=== PATIENT | male | born 1980 | race Caucasian/White ===

== ENCOUNTER → 2016-12-15 | Outpatient (CLI) | payer OTHER ==
[2016-12-15 08:24] LABS: BASO # 0.1 x10^3/uL (0.0-0.2); BASO % 1 % (0-3); EOS % 2 % (0-3); HEMATOCRIT 45.2 % (39.0-53.0); HEMOGLOBIN 15.2 g/dL (13.0-17.5); LYMPH # 2.4 x10^3/uL (1.0-4.8); LYMPH % 28 % (24-48); MEAN CORPUSCULAR HEMOGLOBIN 29 pg (25-35); MEAN CORPUSCULAR HGB CONC 34 g/dL (31-37); MEAN CORPUSCULAR VOLUME 88 fL (79-100); MONO % 7 % (0-9); NEUT % 63 % (31-73); PLATELET COUNT 256 x10^3/uL (140-400); RED BLOOD COUNT 5.16 x10^6/uL (4.30-5.70); RED CELL DISTRIBUTION WIDTH 13.7 % (11.5-14.5); WHITE BLOOD COUNT 8.5 x10^3/uL (4.0-11.0)
[2016-12-15 08:35] LABS: FREE T4 0.83 ng/dL (0.76-1.46)
[2016-12-15 08:51] LABS: ALBUMIN 3.6 g/dL (3.4-5.0); ALBUMIN/GLOBULIN RATIO 0.9 (1.0-1.7); CALCIUM 8.7 mg/dL (8.5-10.1); GFR 84.1; POTASSIUM 4.4 mmol/L (3.5-5.1); TOTAL BILIRUBIN 0.5 mg/dL (0.2-1.0); TOTAL PROTEIN 7.8 g/dL (6.4-8.2)
== END | disposition home or self-care (01) ==
LOC: LAB 07:43
PROVIDERS: ATTEND Physician Assistant
DX: Z13.220 Encounter for screening for lipoid disorders (principal); R53.83 Other fatigue
CPT/HCPCS: 36415; 80053; 80061; 84439; 84443; 85027

== ENCOUNTER → 2017-01-04 | Outpatient (CLI) | payer OTHER ==
[~2017-01-04] MED LIST: ZOLPIDEM 5 MG TABLET. PO ONE
--- NOTE | 2017-01-05 10:26 | SLEEP ---
DATE OF STUDY: 01/04/2017 REFERRED BY: JOSE Bee The patient is 36 years old who weighs 250 pounds with a BMI of 43. The patient's [place] score was 8. A split night study was performed at [facility]. During the night study, the patient spent 395 minutes in bed and slept for 261 minutes with a low sleep efficiency of 66%. Sleep latency was 18 minutes with a REM latency of 304 minutes. Overall, sleep architecture showed normal stage I and stage II sleep, increased slow wave and reduced REM sleep. During the initial diagnostic portion of the study, the patient slept for 138 minutes. During this time, there were 4 obstructive apneas, 5 mixed and 1 central apneas. There were 77 hypopneas. The patient's apnea-hypopnea index was 38 per hour. Supine index 51 per hour. REM sleep was not seen during the diagnostic portion. EKG monitoring revealed mean heart rate of 75 beats per minute. No sustained arrhythmias were observed. Mean oxygen saturation remained around 95% with the lowest of 85%, 9% of time oxygen saturation remained between 80% and 89%. PLMS were not seen. The patient met the criteria for CPAP initiation. He was started 5 cm of water and titrated up to 7 cm of water. At the final pressure, the patient slept for 82 minutes. Supine as well as REM sleep was observed. AHI was reduced to 0 per hour and oxygen saturation remained above 91%. The patient used a small-sized nasal mask. IMPRESSION: 1. Severe sleep apnea-hypopnea syndrome with an apnea-hypopnea index of 38 per hour. 2. Mild nocturnal hypoxia secondary to obstructive sleep apnea, but resolved with CPAP. 3. No clinically significant periodic limb movements of sleep. RECOMMENDATIONS: 1. CPAP at 7 cm water completely eliminated the patient's sleep apnea and it should be used on a nightly basis. 2. Follow up in 4-6 weeks to assess compliance with CPAP and to document clinical improvement. 3. Weight loss is strongly advised. 4. Avoid [employer] depressants. 5. Caution regarding driving until symptoms of sleep apnea resolve with the use of CPAP. TATO WALL MD DR: JASIEL/debra JOB#: [id number] / [id number]
== END | disposition home or self-care (01) ==
LOC: SLPLAB 20:07
PROVIDERS: ATTEND Physician Assistant
DX: R06.81 Apnea, not elsewhere classified (principal)
CPT/HCPCS: 95810

== ENCOUNTER → 2017-01-25 | Outpatient (CLI) | payer OTHER ==
--- NOTE | 2017-01-25 14:39 | CARD ---
APPROVED REPORT Reason : Patient complained of pain PROCEDURE The patient underwent an Exercise Stress Test using the Nestor Protocol. Blood pressure, heart rate, a nd EKG were monitored. An Echocardiogram was performed by ruling technician in four stages in quad fashion. At peak stress four se lected images were obtained and placed side by side with resting images for comparison. STRESS ECHO FINDINGS The resting Echocardiogram showed normal left ventricular contractility with an estimated Ejection Fr action of about 60 %. Normal augmentation of myocardial wall segments using a 16 segment model. Test Type: Pharmacological Stress Nurse/Tech: Julee Taylor R.N. Test Indications: C/P Cardiac History and Allergies: No known cardiac Medications: see ehr Medical History: see ehr Resting ECG: SR w inverted T waves in leads AVR,AVL,V1,V2 Resting Heart Rate: 83 bpm Resting Blood Pressure: 141/78mmHg Pretest Chest Pain: No chest pain Nurse/Tech Notes S1S2, lungs CTA Stress Symptoms Dyspnea POST EXERCISE Reason for Termination: Reached target heart rate Target HR: Yes Max HR: 174 bpm 95% of Maximum Predicted HR: 183 bpm Exercise duration: 10.01 min:sec, 4 Stage Exercise capacity: 12.8METs Max Blood Pressure: 190/98mmHg Blood Pressure response to exercise: Normal blood pressure response during stress. Heart Rate response to exercise: wnl Chest Pain: No. Arrhythmia: No. ST Change: Yes. Non-specific ST/T wave changes. No clear signs of ischemia RESTING ECG Rhythm: Sinus STRESS ECG Rhythm: Sinus Tachycardia Stress EKG shows no significant changes. <Conclusion> The left ventricle is normal in size and wall thickness in both the rest and stress images.
== END | disposition home or self-care (01) ==
LOC: ECHO 12:46
PROVIDERS: ATTEND Internal Medicine Cardiovascular Disease
DX: R06.00 Dyspnea, unspecified (principal)
CPT/HCPCS: 93017; 93350

== ENCOUNTER 2017-10-04 11:02 | Observation (INO) | payer OTHER ==
[~2017-10-04 11:02] MED LIST changes: +HYDROmorphone 2 MG/ML VIAL IV; +LIDOCAINE 1% PF 2 ML VIAL. ID; +MORPHINE SULFATE 2 MG/ML DISP.SYRIN. IV; +PROCHLORPERAZINE 10 MG/2 ML VIAL. IV; -ZOLPIDEM 5 MG TABLET. PO ONE; +fentaNYL PF VIAL 100 MCG/2 ML VIAL IV
[2017-10-04] MEDS: IV RINGERS,LACTATED 1000ML 1,000 ML IV ×6 (11:59→20:05)
[2017-10-04] MEDS ORDERED: DEXAMETHASONE SOD PHOS 20 MG/5 ML VIAL. ×2 (12:42)
[2017-10-04] MEDS ORDERED: ROCURONIUM 50 MG/5 ML VIAL. ×2 (12:42)
[2017-10-04] MEDS ORDERED: fentaNYL PF VIAL 100 MCG/2 ML VIAL ×2 (12:42)
[2017-10-04] MEDS ORDERED: PROPOFOL 20 ML IV ×2 (12:42)
[2017-10-04] MEDS ORDERED: MIDAZOLAM HCL/PF 2 MG/2 ML VIAL. ×2 (12:42)
[2017-10-04] MEDS ORDERED: ONDANSETRON PF 4 MG/2 ML VIAL. ×2 (12:42)
[2017-10-04] MEDS ORDERED: LIDOCAINE 2% PF Vial for OR 5 ML VIAL. ×2 (12:42)
[2017-10-04] MEDS: OXYMETAZOLINE 0.05% NASAL SPRAY 30ML BOTTLE. NS ×2 (13:00)
[2017-10-04] MEDS ORDERED: GLYCOPYRROLATE 1 MG/5 ML VIAL. ×2 (13:01)
[2017-10-04] MEDS: BUPIVACAINE-EPI 0.25%-1:200000 50 ML VIAL. ×2 (13:26)
[2017-10-04] MEDS: LIDOCAINE 1%/EPI 1:100,000 20 ML VIAL. ×2 (13:26)
[2017-10-04] MEDS ORDERED: NEOSTIGMINE METHYLSULFATE 5 MG/5 ML SYRINGE. ×2 (13:55)
[2017-10-04] MEDS ORDERED: ONDANSETRON PF 4 MG/2 ML VIAL. IV ×2 (14:15)
[2017-10-04] MEDS ORDERED: CALCIUM CARBONATE 500 MG TAB.CHEW PO ×2 (14:15)
[2017-10-04] MEDS ORDERED: MAG HYDROX/ALUMINUM HYD/SIMETH 30 ML ORAL.SUSP PO ×2 (14:15)
[2017-10-04] MEDS ORDERED: NALOXONE 0.4 MG/ML VIAL. IV ×2 (14:15)
[2017-10-04] MEDS ORDERED: 0.9 % SODIUM CHLORIDE 10 ML DISP.SYRIN. IV ×2 (14:15)
[2017-10-04] MEDS: fentaNYL PF VIAL 100 MCG/2 ML VIAL IV ×6 (15:09→16:22)
[2017-10-04] MEDS: ONDANSETRON PF 4 MG/2 ML VIAL. IV ×4 (17:20→22:54)
[2017-10-04] MEDS ORDERED: TEMAZEPAM 7.5 MG CAPSULE PO ×2 (19:45)
[2017-10-04] MEDS: oxyCODONE/APAP 7.5/325 1 TAB TABLET PO ×4 (19:53→23:54)
[2017-10-04] MEDS: diphenhydrAMINE HCL 25 MG CAPSULE PO ×2 (20:50)
[2017-10-05] MEDS: oxyCODONE/APAP 7.5/325 1 TAB TABLET PO ×4 (03:37→08:37)
[2017-10-05] MEDS ORDERED: ONDANSETRON ODT 4 MG TAB.RAPDIS. PO ×2 (08:45)
[2017-10-05] MEDS: IV RINGERS,LACTATED 1000ML 1,000 ML IV ×2 (10:10)
== END 2017-10-05 11:05 | disposition home or self-care (01) ==
LOC: SURG 11:02 → 2 SOUTH 14:10
DX: G47.33 Obstructive sleep apnea (adult) (pediatric) (principal); J35.03 Chronic tonsillitis and adenoiditis
CPT/HCPCS: 42145; 88304; 96374; 96375; 96376; G0378; G0379; J1100; J2060; J2250; J2405; J2704; J2710; J3010; J3490; J7120; Q0163

== ENCOUNTER 2017-10-16 15:29 | Emergency (ER) | payer OTHER ==
[2017-10-16] MEDS: IV NORMAL SALINE 1000ML BAG 1,000 ML IV (16:29)
[2017-10-16 16:35] LABS: ADD MAN DIFF? NO
[2017-10-16 16:37] LABS: BASO # 0.1 x10^3/uL (0.0-0.2); BASO % 1 % (0-3); EOS # 0.1 x10^3/uL (0.0-0.7); EOS % 1 % (0-3); HEMATOCRIT 43.4 % (39.0-53.0); HEMOGLOBIN 15.4 g/dL (13.0-17.5); LYMPH # 2.5 x10^3/uL (1.0-4.8); LYMPH % 24 % (24-48); MEAN CORPUSCULAR HEMOGLOBIN 30 pg (25-35); MEAN CORPUSCULAR HGB CONC 36 g/dL (31-37); MEAN CORPUSCULAR VOLUME 84 fL (79-100); MONO # 0.7 x10^3/uL (0.0-1.1); MONO % 6 % (0-9); NEUT % 68 % (31-73); PLATELET COUNT 348 x10^3/uL (140-400); RED BLOOD COUNT 5.17 x10^6/uL (4.30-5.70); WHITE BLOOD COUNT 10.3 x10^3/uL (4.0-11.0)
[2017-10-16 16:47] LABS: ANION GAP 13 (6-14); BLOOD UREA NITROGEN 24 mg/dL (8-26); CALCIUM 9.4 mg/dL (8.5-10.1); CARBON DIOXIDE 24 mmol/L (21-32); CHLORIDE 99 mmol/L (98-107); GFR 83.6; GLUCOSE 88 mg/dL (70-99); POTASSIUM 3.7 mmol/L (3.5-5.1); SODIUM 136 mmol/L (136-145)
== END 2017-10-16 18:00 | disposition home or self-care (01) ==
LOC: ER 15:29
DX: G89.18 Other acute postprocedural pain (principal); Z90.89 Acquired absence of other organs
CPT/HCPCS: 36415; 80048; 85025; 96360; 99284-25; J7030